=== PATIENT | female | born 1990 | race Caucasian/White ===

== ENCOUNTER 2018-04-14 09:56 | Day surgery (SDC) | payer SELFPAY ==
[2018-04-14] VITALS (14 sets, daily range): BP systolic 115–137; BP diastolic 63–84
[~2018-04-14] VITALS: Ht 162.6 cm; Wt 59.0 kg
[2018-04-14] MEDS ORDERED: Sodium Chloride 500ML 500 ML IV ONE (10:13)
[2018-04-14] MEDS ORDERED: Morphine Sulfate 4mg/ml Inj (IV USE ONLY) IVP ONE ×2 (10:15→11:15)
[2018-04-14 10:32] LABS: BASOPHILS % (AUTO) 1.2 % (0.0-2.0); HEMATOCRIT 41.5 % (37.0-47.0); HEMOGLOBIN 13.7 G/DL (12.0-16.0); LYMPHOCYTES % (AUTO) 47.1 % (20.0-45.0); MEAN CORPUSCULAR VOLUME 90 FL (80-99); MONOCYTES % (AUTO) 9.3 % (1.0-10.0); NEUTROPHILS % (AUTO) 38.3 % (45.0-75.0); PLATELET COUNT 332 K/UL (150-450); RED BLOOD COUNT 4.61 M/UL (4.20-5.40); RED CELL DISTRIBUTION WIDTH 11.7 % (11.6-14.8); WHITE BLOOD COUNT 5.4 K/UL (4.8-10.8)
[2018-04-14 10:46] LABS: ANION GAP 11 mmol/L (5-15); BLOOD UREA NITROGEN 11 mg/dL (7-18); CALCIUM 9.4 MG/DL (8.5-10.1); CARBON DIOXIDE 27 MMOL/L (21-32); CHLORIDE 103 MMOL/L (98-107); CREATININE 0.8 MG/DL (0.55-1.30); POTASSIUM 3.6 MMOL/L (3.5-5.1); SODIUM 141 MMOL/L (136-145)
[2018-04-14 10:50] LABS: ALANINE AMINOTRANSFERASE 18 U/L (12-78); ALBUMIN 4.2 G/DL (3.4-5.0); ALBUMIN/GLOBULIN RATIO 1.1 (1.0-2.7); ALKALINE PHOSPHATASE 54 U/L (46-116); ASPARTATE AMINO TRANSFERASE 14 U/L (15-37); BILIRUBIN,TOTAL 0.6 MG/DL (0.2-1.0)
[2018-04-14] MEDS ORDERED: Ketorolac 30mg Inj IV ONE (11:45)
--- NOTE | 2018-04-14 12:54 | Diagnostic Imaging Report ---
Indication: Right-sided pelvic pain Technique: Transabdominal and transvaginal images Comparison: none Findings: Uterus measures 8.3 cm length by 3.2 cm AP. Endometrium measures 8 mm thick. No myometrial abnormality. The right ovary is enlarged, measuring 7.3 x 5.7 cm. It demonstrates central mixed echogenicity, peripheral follicles, and absence of vascularity. The left ovary measures 5.2 cm in length. There is trace free cul-de-sac fluid. Impression: Enlarged avascular right ovary, findings highly suspicious for acute ovarian torsion. Critical value findings phoned to Dr. Estrella at approximately 12:00 PM
[2018-04-14] MEDS ORDERED: LR 1000ml ONE (13:30)
[2018-04-14] MEDS ORDERED: Sterile Water Irrig 1000ml IRRIG ONE (13:30)
[2018-04-14] MEDS ORDERED: Ropivacaine 5mg/ml Vial 30ml INJ ONE (13:34)
--- NOTE | 2018-04-14 13:45 | Emergency Room Report ---
History of Present Illness General Chief Complaint: Abdominal Pain Source: Patient Present Illness HPI 28-year-old female presents to ED for evaluation of abdominal pain. Notes pain to right lower abdomen, sharp, 9 out of 10, radiating to the lower back. States pain started about 2 hours ago sudden onset. No aggravating relieving factors. Notes nausea, denies vomiting. Denies fevers or chills. Denies any other associated symptoms Allergies: Coded Allergies: No Known Allergies (Unverified , 04/14/18) Patient History Past Medical History: none Past Surgical History: none Pertinent Family History: none Social History: Denies: smoking, alcohol use, drug use Last Menstrual Period: 03/24/18 Now: No Immunizations: UTD Reviewed Nursing Documentation: PMH: Agreed; PSxH: Agreed Nursing Documentation-PMH Past Medical History: No Stated History Review of Systems All Other Systems: negative except mentioned in HPI Physical Exam Vital Signs Date Time Temp Pulse Resp B/P (MAP) Pulse Ox O2 Delivery O2 Flow Rate FiO2 04/14/18 09:59 98.0 67 18 123/69 100 Room Air 98.1 Sp02 EP Interpretation: reviewed, normal General Appearance: alert, GCS 15, non-toxic, mild distress Head: normocephalic, atraumatic Eyes: bilateral eye normal inspection, bilateral eye PERRL ENT: hearing grossly normal, normal pharynx, no angioedema, normal voice Neck: full range of motion, supple/symm/no masses Respiratory: chest non-tender, lungs clear, normal breath sounds, speaking full sentences Cardiovascular #1: regular rate, rhythm, no edema Cardiovascular #2: 2+ carotid (R), 2+ carotid (L), 2+ radial (R), 2+ radial (L) , 2+ dorsalis pedis (R), 2+ dorsalis pedis (L) Gastrointestinal: normal bowel sounds, soft, non-distended, no guarding, no rebound, tenderness - RLQ Rectal: deferred Genitourinary: normal inspection, no CVA tenderness Musculoskeletal: back normal, gait/station normal, normal range of motion, non- tender Neurologic: alert, oriented x3, responsive, motor strength/tone normal, sensory intact, speech normal Psychiatric: judgement/insight normal, memory normal, mood/affect normal, no suicidal/homicidal ideation Reflexes: 3+ bicep (R), 3+ bicep (L), 3+ tricep (R), 3+ tricep (L), 3+ knee (R) , 3+ knee (L) Skin: normal color, no rash, warm/dry, well hydrated Lymphatic: no adenopathy Procedures Critical Care Time Critical Care Time i. I feel this is a highly complex case requiring extensive working including EKG/Rhythm strip, Xray/CT/US, Blood/urine lab work, repeat exams while in ED, and administration of strong opiates/narcotics for pain control, admission to hospital or close patient follow up. Total time: 30 min bedside evaluation and treatment excludes procedures (EKG). Reason for critical care: R ovarian torsion Possible complications: hypotension, hypertension, WI, shock, arrhythmias, metabolic acidosis, end organ damage, respiratory failure. Interventions: labs, meds, Pelvic US. consutlation with OBGYN. preparation for OR Course: Patient presenting with right lower abdominal pain. Ultrasound shows right ovarian torsion. Consultation with [facility] and preparation for immediate OR. Discussed findings with patient. Patient made nothing by mouth. Preoperative EKG completed Consultations: nursing staff, EMS, family Performed by: Dr Estrella Tolerated well condition = serious j. because of unstable vital signs this patient had a condition that could potentially threaten life or limb. I feel this is a critical patient who required my full attention while patient was considered critical. Total Critical Care Time excluding procedures was greater than 35 minutes Medical Decision Making Diagnostic Impression: Primary Impression: Ovarian torsion ER Course Hospital Course 28-year-old female presents ED with lower abdominal pain Differential diagnoses include: BPH, cystitis, pyelonephritis, kidney stone Clinical course Patient placed on stretcher. quality assurance monitor. After initial history and physical I ordered labs, IV fluids, UA, pain medication and Pelvic US Labs - no leukocytosis, Hb/Hct stable. electrolytes ok, UA negative Pelvic US - R ovarian torsion Discussed case with Dr. Pearson; agrees that patient needs to be taken to operating room urgently EKG - NSR, no acute ischemic changes interpreted by me Case discussed with Dr. Ge and he agreed to accept the patient to his service for further care and support I feel this is a highly complex case requiring extensive working including EKG/ Rhythm strip, Xray/CT/US, Blood/urine lab work, repeat exams while in ED, and administration of strong opiates/narcotics for pain control, admission to hospital or close patient follow up. Diagnosis - ovarian torsion Patient taken to OR in serious condition Labs Test 04/14/18 10:07 White Blood Count 5.4 K/UL (4.8-10.8) Red Blood Count 4.61 M/UL (4.20-5.40) Hemoglobin 13.7 G/DL (12.0-16.0) Hematocrit 41.5 % (37.0-47.0) Mean Corpuscular Volume 90 FL (80-99) Mean Corpuscular Hemoglobin 29.8 PG (27.0-31.0) Mean Corpuscular Hemoglobin Concent 33.1 G/DL (32.0-36.0) Red Cell Distribution Width 11.7 % (11.6-14.8) Platelet Count 332 K/UL (150-450) Mean Platelet Volume 6.0 FL (6.5-10.1) Neutrophils (%) (Auto) 38.3 % (45.0-75.0) Lymphocytes (%) (Auto) 47.1 % (20.0-45.0) Monocytes (%) (Auto) 9.3 % (1.0-10.0) Eosinophils (%) (Auto) 4.0 % (0.0-3.0) Basophils (%) (Auto) 1.2 % (0.0-2.0) Prothrombin Time 10.9 SEC (9.30-11.50) Prothromb Time International Ratio 1.0 (0.9-1.1) Activated Partial Thromboplast Time 26 SEC (23-33) Sodium Level 141 MMOL/L (136-145) Potassium Level 3.6 MMOL/L (3.5-5.1) Chloride Level 103 MMOL/L (98-107) Carbon Dioxide Level 27 MMOL/L (21-32) Anion Gap 11 mmol/L (5-15) Blood Urea Nitrogen 11 mg/dL (7-18) Creatinine 0.8 MG/DL (0.55-1.30) Estimat Glomerular Filtration Rate > 60 mL/min (>60) Glucose Level 126 MG/DL (74-106) Calcium Level 9.4 MG/DL (8.5-10.1) Total Bilirubin 0.6 MG/DL (0.2-1.0) Aspartate Amino Transf (AST/SGOT) 14 U/L (15-37) Alanine Aminotransferase (ALT/SGPT) 18 U/L (12-78) Alkaline Phosphatase 54 U/L (46-116) Total Protein 7.9 G/DL (6.4-8.2) Albumin 4.2 G/DL (3.4-5.0) Globulin 3.7 g/dL Albumin/Globulin Ratio 1.1 (1.0-2.7) Lipase 132 U/L (73-393) Human Chorionic Gonadotropin, Qual Negative (NEGATIVE) Hematology Test 04/14/18 10:07 White Blood Count 5.4 K/UL (4.8-10.8) Red Blood Count 4.61 M/UL (4.20-5.40) Hemoglobin 13.7 G/DL (12.0-16.0) Hematocrit 41.5 % (37.0-47.0) Mean Corpuscular Volume 90 FL (80-99) Mean Corpuscular Hemoglobin 29.8 PG (27.0-31.0) Mean Corpuscular Hemoglobin Concent 33.1 G/DL (32.0-36.0) Red Cell Distribution Width 11.7 % (11.6-14.8) Platelet Count 332 K/UL (150-450) Mean Platelet Volume 6.0 FL (6.5-10.1) L Neutrophils (%) (Auto) 38.3 % (45.0-75.0) L Lymphocytes (%) (Auto) 47.1 % (20.0-45.0) H Monocytes (%) (Auto) 9.3 % (1.0-10.0) Eosinophils (%) (Auto) 4.0 % (0.0-3.0) H Basophils (%) (Auto) 1.2 % (0.0-2.0) Coagulation Test 04/14/18 10:07 Prothrombin Time 10.9 SEC (9.30-11.50) Prothromb Time International Ratio 1.0 (0.9-1.1) Activated Partial Thromboplast Time 26 SEC (23-33) Chemistry Test 04/14/18 10:07 Sodium Level 141 MMOL/L (136-145) Potassium Level 3.6 MMOL/L (3.5-5.1) Chloride Level 103 MMOL/L (98-107) Carbon Dioxide Level 27 MMOL/L (21-32) Anion Gap 11 mmol/L (5-15) Blood Urea Nitrogen 11 mg/dL (7-18) Creatinine 0.8 MG/DL (0.55-1.30) Estimat Glomerular Filtration Rate > 60 mL/min (>60) Glucose Level 126 MG/DL (74-106) H Calcium Level 9.4 MG/DL (8.5-10.1) Total Bilirubin 0.6 MG/DL (0.2-1.0) Aspartate Amino Transf (AST/SGOT) 14 U/L (15-37) L Alanine Aminotransferase (ALT/SGPT) 18 U/L (12-78) Alkaline Phosphatase 54 U/L (46-116) Total Protein 7.9 G/DL (6.4-8.2) Albumin 4.2 G/DL (3.4-5.0) Globulin 3.7 g/dL Albumin/Globulin Ratio 1.1 (1.0-2.7) Lipase 132 U/L (73-393) Human Chorionic Gonadotropin, Qual Negative (NEGATIVE) EKG Diagnostic Results Rate: normal Rhythm: NSR ST Segments: no acute changes ASA given to the pt in ED: No Rhythm Strip Diag. Results EP Interpretation: yes Rhythm: NSR, no PVC's, no ectopy CT/MRI/US Diagnostic Results CT/MRI/US Diagnostic Results : Imaging Test Ordered: Pelvic US Impression R ovarian torsion Last Vital Signs Date Time Temp Pulse Resp B/P (MAP) Pulse Ox O2 Delivery O2 Flow Rate FiO2 04/14/18 12:38 98.0 04/14/18 11:01 18 127/75 100 Room Air 04/14/18 09:59 67 Status: improved Disposition: ADMITTED INPATIENT Condition: Serious Scripts No Active Prescriptions or Reported Meds Referrals: NON PHYSICIAN (PCP) Walt Estrella MD Apr 14, 2018 13:45
[2018-04-14] MEDS ORDERED: Propofol 200mg/20ml IV ONE (13:52)
[2018-04-14] MEDS ORDERED: Lidocaine 1% MPF 10mg/ml 5ml ONE (13:52)
[2018-04-14] MEDS ORDERED: Sodium Chloride 10ml vial INJ ONE (13:52)
[2018-04-14] MEDS ORDERED: Dexamethasone 4mg/ml vial ONE (13:52)
[2018-04-14] MEDS ORDERED: fentaNYL 100 mcg/2 mL IV ONE (13:53)
--- NOTE | 2018-04-14 13:53 | Pre-Procedure Note/Attestation ---
Pre-Procedure Note/Attestation Complete Prior to Procedure Planned Procedure: right Procedure Narrative: Video Laparoscopy, Possible Right Oophorectomy, Indications for Procedure Pre-Operative Diagnosis: Right Ovarian Torsion Attestation I attest that I discussed the nature of the procedure; its benefits; risks and complications; and alternatives (and the risks and benefits of such alternatives ), prior to the procedure, with the patient (or the patient's legal sales representative printing supplies). I attest that, if there was a reasonable possibility of needing a blood transfusion, the patient (or the patient's legal sales representative printing supplies) was given the [facility] standardized written summary, pursuant to the August Nikita Blood Safety Act ([place] Health and Safety Code # 1645, as amended). I attest that I re-evaluated the patient just prior to the surgery and that there has been no change in the patient's H&P, except as documented below: NONE ESTELITA DUTTON Apr 14, 2018 13:53
[2018-04-14] MEDS ORDERED: Zemuron 50mg/5ml Inj IV ONE (14:08)
[2018-04-14] MEDS ORDERED: LR 1000ml 1,000 ML IVLG SCH (14:25)
[2018-04-14] MEDS ORDERED: Norco 5mg/325mg tab ORAL PRN ×2 (14:30→20:01)
[2018-04-14] MEDS ORDERED: Midazolam 2mg/2ml Inj IVP PRN (14:30)
[2018-04-14] MEDS ORDERED: Ketorolac 30mg Inj IV PRN ×2 (14:30)
[2018-04-14] MEDS ORDERED: DiphenhydrAMINE 50mg/ml Inj IVP PRN (14:30)
[2018-04-14] MEDS ORDERED: oxyCODONE HCL/Acetaminophen 5/325mg ORAL PRN (14:30)
[2018-04-14] MEDS ORDERED: HYDROcodone/Acetamin 7.5/325 tab ORAL PRN (14:30)
[2018-04-14] MEDS ORDERED: Metoclopramide 10mg/2ml Inj IVP PRN (14:30)
[2018-04-14] MEDS ORDERED: Hydromorphone 0.5mg/0.5ml inj IVP PRN (14:30)
[2018-04-14] MEDS ORDERED: fentaNYL 100 mcg/2 mL IV PRN (14:30)
[2018-04-14] MEDS ORDERED: Labetalol 5mg/ml 20ml vial IV PRN (14:30)
[2018-04-14] MEDS ORDERED: LORazepam Inj 2mg/ml 1ml IV PRN (14:30)
[2018-04-14] MEDS ORDERED: Atropine Inj 1mg/10ml Syr IV PRN (14:30)
[2018-04-14] MEDS ORDERED: Acetaminophen (Non formulary) 100 ML IV ONE (14:30)
--- NOTE | 2018-04-14 14:39 | Anethesia Preoperative Eval ---
Anesthesia Pre-op PMH/ROS General Date of Evaluation: Apr 14, 2018 Time of Evaluation: 13:41 Anesthesiologist: Austen ASA Score: ASA 2 Mallampati Score Class I : Soft palate, uvula, fauces, pillars visible Class II: Soft palate, uvula, fauces visible Class III: Soft palate, base of uvula visible Class IV: Only hard plate visible Mallampati Classification: Class I Surgeon: Lili Diagnosis: Abd Pain Surgical Procedure: Laparoscpic Oophorectomy Anesthesia History: none Family History: no anesthesia problems Allergies: Coded Allergies: No Known Allergies (Unverified , 04/14/18) Medications: see eMAR Anesthesia Pre-op Phys. Exam Physician Exam Last Vital Signs Date Time Temp Pulse Resp B/P (MAP) Pulse Ox O2 Delivery O2 Flow Rate FiO2 04/14/18 12:38 98.0 04/14/18 11:01 18 127/75 100 Room Air 04/14/18 09:59 67 Constitutional: NAD Neurologic: CN 2-12 intact Cardiovascular: RRR Respiratory: CTA Gastrointestinal: S/NT/ND Airway Exam Mallampati Score: Class I MO: full ROM: full Teeth: intact Anesthesia Pre-op A/P Labs Hematology Test 04/14/18 10:07 White Blood Count 5.4 K/UL (4.8-10.8) Red Blood Count 4.61 M/UL (4.20-5.40) Hemoglobin 13.7 G/DL (12.0-16.0) Hematocrit 41.5 % (37.0-47.0) Mean Corpuscular Volume 90 FL (80-99) Mean Corpuscular Hemoglobin 29.8 PG (27.0-31.0) Mean Corpuscular Hemoglobin Concent 33.1 G/DL (32.0-36.0) Red Cell Distribution Width 11.7 % (11.6-14.8) Platelet Count 332 K/UL (150-450) Mean Platelet Volume 6.0 FL (6.5-10.1) L Neutrophils (%) (Auto) 38.3 % (45.0-75.0) L Lymphocytes (%) (Auto) 47.1 % (20.0-45.0) H Monocytes (%) (Auto) 9.3 % (1.0-10.0) Eosinophils (%) (Auto) 4.0 % (0.0-3.0) H Basophils (%) (Auto) 1.2 % (0.0-2.0) Coagulation Test 04/14/18 10:07 Prothrombin Time 10.9 SEC (9.30-11.50) Prothromb Time International Ratio 1.0 (0.9-1.1) Activated Partial Thromboplast Time 26 SEC (23-33) Chemistry Test 04/14/18 10:07 Sodium Level 141 MMOL/L (136-145) Potassium Level 3.6 MMOL/L (3.5-5.1) Chloride Level 103 MMOL/L (98-107) Carbon Dioxide Level 27 MMOL/L (21-32) Anion Gap 11 mmol/L (5-15) Blood Urea Nitrogen 11 mg/dL (7-18) Creatinine 0.8 MG/DL (0.55-1.30) Estimat Glomerular Filtration Rate > 60 mL/min (>60) Glucose Level 126 MG/DL (74-106) H Calcium Level 9.4 MG/DL (8.5-10.1) Total Bilirubin 0.6 MG/DL (0.2-1.0) Aspartate Amino Transf (AST/SGOT) 14 U/L (15-37) L Alanine Aminotransferase (ALT/SGPT) 18 U/L (12-78) Alkaline Phosphatase 54 U/L (46-116) Total Protein 7.9 G/DL (6.4-8.2) Albumin 4.2 G/DL (3.4-5.0) Globulin 3.7 g/dL Albumin/Globulin Ratio 1.1 (1.0-2.7) Lipase 132 U/L (73-393) Human Chorionic Gonadotropin, Qual Negative (NEGATIVE) Serum Test Test 04/14/18 10:07 Human Chorionic Gonadotropin, Qual Negative (NEGATIVE) Risk Assessment & Plan Assessment: ASA 2E Plan: GA, BIS, GlideScope Status Change Before Surgery: No Pre-Antibiotics Dru Gram Ancef IV Given Within 1 Hr of Incision: Yes Time Given: 14:06 Horacio Boyce MD Apr 14, 2018 14:39
--- NOTE | 2018-04-14 14:43 | Immediate Post-Op Evaluation ---
Immediate Post-Op Evalulation Immediate Post-Op Evalulation Procedure: Laparoscpic Oophorectomy Date of Evaluation: Apr 14, 2018 Time of Evaluation: 16:30 IV Fluids: 900 LR Blood Products: 0 Estimated Blood Loss: 50 Urinary Output: 300 Blood Pressure Systolic: 118 Blood Pressure Diastolic: 66 Pulse Rate: 83 Respiratory Rate: 16 O2 Sat by Pulse Oximetry: 100 Temperature (Fahrenheit): 97.3 Pain Score (1-10): 1 Nausea: No Vomiting: No Complications 0 Patient Status: awake, reacts, patent, extubated, none Hydration Status: adequate Dru Gram Ancef IV Given Within 1 Hr of Incision: Yes Time Given: 14:06 Horacio Boyce MD Apr 14, 2018 14:43
--- NOTE | 2018-04-14 14:44 | 48 Hour Post Anesthesia Eval ---
Post Anesthesia Evaluation Procedure: Laparoscpic Oophorectomy Date of Evaluation: Apr 14, 2018 Time of Evaluation: 18:43 Blood Pressure Systolic: 113 0: 67 Pulse Rate: 74 Respiratory Rate: 18 Temperature (Fahrenheit): 98.2 O2 Sat by Pulse Oximetry: 100 Airway: patent Nausea: No Vomiting: No Pain Intensity: 1 Hydration Status: adequate Cardiopulmonary Status: Stable Mental Status/LOC: patient returned to baseline Follow-up Care/Observations: 0 Post-Anesthesia Complications: 0 Follow-up care needed: ready to discharge Horacio Boyce MD Apr 14, 2018 14:44
[2018-04-14] MEDS ORDERED: Glycopyrrolate 0.2mg/ml 1ml Vial ONE (15:23)
--- NOTE | 2018-04-14 16:04 | Brief Operative Note ---
Immediate Post Operative Note Operative Note Pre-op Diagnosis: Right Ovarian Torsion Procedure: Emergency Video Laparoscopy, Right Salpingo-oophorectomy Post-op Diagnosis: Right Ovarian Torsion, Right Tubal Torsion Post-op Diagnosis: same as pre-op Findings: consistent w/pre-op dx studies Surgeon: Estelita Dutton MD Data Integration Architect: NONE Anesthesiologist: Horacio Boyce MD Anesthesia: general Specimen: yes - Right Ovary and Tube, Pelvic Washings Complications: none Condition: stable Fluids: LR @ 125 cc/hr Estimated Blood Loss: minimal Drains: none Packing: None Implant(s) used?: No ESTELITA DUTTON Apr 14, 2018 16:04
[2018-04-14] MEDS ORDERED: D5 1/2NS 1,000 ML IV SCH (20:01)
--- NOTE | 2018-04-16 00:41 | Cardiology Report ---
APPROVED REPORT EKG Measurement Heart [id number] Normal sinus rhythm Normal ECG
--- NOTE | 2018-04-22 07:15 | Operative Note - Dictated ---
DATE OF OPERATION: 04/14/2018 PREOPERATIVE DIAGNOSIS: Ovarian torsion. POSTOPERATIVE DIAGNOSIS: Right ovarian torsion. PROCEDURE PERFORMED: Video laparoscopy with right salpingo-oophorectomy. SURGEON: Samson Pearson M.D. SUPERVISING EDITOR TRAILER: No assistant director of admissions because this is an emergency surgery. ANESTHESIA: General endotracheal. PROCEDURE IN DETAIL: After all the appropriate consents were signed, the patient was brought to the operating room and placed on the table in supine position. General endotracheal anesthesia was induced without complication. The patient was then placed in a dorsal lithotomy position. Perineum, vagina, and abdomen were prepped and draped in the usual fashion for the procedure. The patient was examined under anesthesia. The pelvis was felt with fullness. At that time, the vaginal portion of the procedure was performed where the cervix was dilated and uterine manipulator was placed. After that, the abdominal portion of the procedure began by making an umbilical incision. Veress needle was advanced and the abdomen was insufflated up to 15 mmHg of CO2 gas. An 11 millimeter trocar was placed in the abdomen and the pelvis and the abdomen were visualized. Two additional trocars were placed in the lower midline and lower left quadrant. At this time, the procedure continued and the right adnexa was severely enlarged and dark. The tube was also severely enlarged and also torqued along with the ovary. At this time, very carefully in order not to untwist the ovary, the bipolar cautery was used to cauterize the infundibulopelvic ligament and the tube at the point of torsion. The procedure continued with bipolar cauterization and transection of the infundibulopelvic ligament followed by utero-ovarian ligament to completely remove the ovary away from the pelvic sidewall. Once this was completed, a laparoscopic bag was advanced in the pelvis and the ovary with difficulty placed in a large laparoscopic bag. The incision was slightly enlarged to be able to bring the torqued ovary through the incision in the midline. The large adnexal mass, once it was placed in the bag, occupied almost the entire bag with very little bag left to drain through the incision. Gradually, the entire mass was removed through the incision with no mass felt in the pelvis. Prior to removing of the mass, the pelvis was thoroughly irrigated and washings were taken. Once everything was removed, the pelvis was once again evaluated and found to be within normal limits. There did not appear to be any other pathology in the pelvis. The pelvis was thoroughly irrigated and the debris and the blood were suctioned. The incisions were fully hemostatic. At this time, the trocar was removed with laparoscope being removed last. Incisions were now closed with #0 Vicryl suture at the fascial layer and 4-0 Vicryl at the skin layer. The patient was now placed in the supine position and awakened from anesthesia after Steri-Strips and benzoin and dressing were placed over the skin. The patient was brought to the recovery room in excellent condition. She tolerated the procedure very well. Samson Pearson M.D. DR: JAYDA JOB#: [id number] CC:
== END 2018-04-14 19:00 | disposition home or self-care (01) ==
LOC: EMR 10:14 → EDBEDREQ 13:00 → EDBEDREQSVC 13:00 → SUR 13:08
DX: N83.519 Torsion of ovary and ovarian pedicle, unspecified side (principal)
CPT/HCPCS: 36415; 58661; 76830; 76856; 80053; 83690; 84703; 85025; 85610; 85730; 86850; 86900; 86901; 93005; J0690; J1100; J1885; J2250; J2270; J2405; J2704; J2765; J2795; J3010; J7040; J7120; 94003; 94150

== ENCOUNTER 2018-04-29 15:10 | Emergency (ER) | payer SELFPAY ==
[~2018-04-29] VITALS: Ht 162.6 cm; Wt 54.4 kg
[2018-04-29] MEDS ORDERED: AMOX TR-K CLV1 EAC2 ORAL (15:28)
[2018-04-29 15:30] VITALS: BP 112/68
--- NOTE | 2018-04-29 16:39 | Emergency Room Report ---
History of Present Illness General Chief Complaint: Abdominal Pain Source: Patient Present Illness HPI Ms. Davis is pleasant 28 yo female who underwent emergent oophorectomy for ovarian torsion [address] Pearson. She did not have pain until approximately one week post op. She has been to two outside hospital ED for evaluation of right sided pelvic pain. She had had two CT scans and two pelvic ultrasounds. She has a left sided ovarian cyst. She is concerned about fertilitiy with the new cyst. She is also concerned for dysuria. RLQ pain mostly occurs in the evening. No pain throughout the day. Allergies: Coded Allergies: No Known Allergies (Unverified , 04/14/18) Patient History Past Medical History: other - ovarian torsion Past Surgical History: other - oophorectomy Last Menstrual Period: 03/30/2018 Nursing Documentation-[facility] Past Medical History: No History, Except For Review of Systems Constitutional: Denies: fever, malaise Gastrointestinal: Reports: abdominal pain Musculoskeletal: Denies: back pain All Other Systems: negative except mentioned in HPI Physical Exam Vital Signs Date Time Temp Pulse Resp B/P (MAP) Pulse Ox O2 Delivery O2 Flow Rate FiO2 04/29/18 15:23 98.2 82 14 112/68 95 Room Air 98.2 Sp02 EP Interpretation: reviewed, normal General Appearance: no apparent distress, alert, GCS 15, non-toxic, other - smiling pleasant NAD Head: normocephalic, atraumatic Eyes: bilateral eye normal inspection ENT: hearing grossly normal, normal pharynx, no angioedema, normal voice Neck: full range of motion, supple/symm/no masses Respiratory: chest non-tender, lungs clear, normal breath sounds, speaking full sentences Cardiovascular #1: regular rate, rhythm, no edema, no gallop, no JVD, no murmur , no rub Gastrointestinal: normal bowel sounds, non tender, soft, non-distended, no guarding, no rebound Rectal: deferred Musculoskeletal: back normal, gait/station normal, normal range of motion, non- tender Neurologic: alert, oriented x3, responsive, motor strength/tone normal, sensory intact, speech normal Psychiatric: judgement/insight normal, memory normal, mood/affect normal, no suicidal/homicidal ideation Skin: normal color, no rash, warm/dry, well hydrated Lymphatic: no adenopathy Medical Decision Making Diagnostic Impression: Primary Impression: UTI (urinary tract infection) Additional Impressions: Hx of oophorectomy Post-op pain ER Course Ms. Davis has been unable to f/u with Dr. Pearson. I did speak with Dr. Pearson. He contacted the patient per phone one week ago. She was doing well at that time. He was surprised that she has yet to follow up in the office. Patient required reasurance and education. No indication of post op complication. However, with severe dysuria I do suspect UTI. Rx: nitrofurantoin, ibuprofen pyridium Last Vital Signs Date Time Temp Pulse Resp B/P (MAP) Pulse Ox O2 Delivery O2 Flow Rate FiO2 04/29/18 15:23 98.2 82 14 112/68 95 Room Air 98.2 Disposition: AGAINST MEDICAL ADVICE Condition: Stable Ronda Khan MD Apr 29, 2018 16:39
[2018-04-29] MEDS ORDERED: PHENAZOPYRIDIN200 MG ORAL (16:41)
[2018-04-29] MEDS ORDERED: MACROBID100 MG ORAL (16:42)
[2018-04-29] MEDS ORDERED: IBUPROFEN600 MG ORAL (16:42)
[2018-04-29 17:00] VITALS: BP 111/78
== END 2018-04-29 17:00 | disposition home or self-care (01) ==
LOC: EMR 17:00
DX: N39.0 Urinary tract infection, site not specified (principal); R10.31 Right lower quadrant pain; G89.18 Other acute postprocedural pain; Z90.721 Acquired absence of ovaries, unilateral
CPT/HCPCS: 99283